=== PATIENT | male | born 1955 | race Caucasian/White ===

== ENCOUNTER 2024-12-09 13:50 | Outpatient (REF) | payer MEDICARE, MEDICAID, SELFPAY ==
--- OUTSIDE RECORDS SUMMARY | 2024-12-09 14:06 | XMS_ITS | Encounter Summary ---
Author Organization [employer] Address [address] [place] [address] Care Team Providers Care Airline Pilot Flight Instructor Name Role Phone Jacquelyn Kothari MD Primary Care Provider [phone] Encounter Details Date Type Department Care Team ([facility] st Contact Info) Description 08/08/2022 Orders Only [facility] [address] [place], [place] [phone] Alexia Carroll LPN Social History Tobacco Use Types Packs/Day Years Used Date Smoking Tobacco: Never Assessed Sex and Gender Information Value Date Recorded Sex Assigned at Male 05/13/2022 10:30 AM EDT Legal Sex Male 10:30 AM EDT Gender Identity Male 05/13/2022 10:30 AM EDT Sexual Orientation Straight 05/13/2022 10 :30 AM EDT documented as of this encounter Plan of Treatment Not on file documented as of this encounter Visit Diagnoses Not on filedocumented in this encounter Care Teams Airline Pilot Flight Instructor Relationship Specialty Start Date End Date Jacquelyn Kothari MD [address] [place] [address] PCP - General Family Medicine 05/18/20 documented as of this encounter
[2024-12-09 17:36] LABS: MANUAL DIFF FLAG NO
[2024-12-09 17:44] LABS: Basophils Absolute Auto 0.1 X10*3/uL (0.0-0.2); Basophils Percent Auto 0.9 % (0-2); Eosinophils Absolute Auto 0.3 X10*3/uL (0.0-0.4); Eosinophils Percent Auto 5.1 % (0-4); Hematocrit 43.4 % (42.0-52.0); Hemoglobin 14.7 g/dl (14.0-18.0); Imm Gran Abs Auto 0.01 X10*3/uL (0.00-0.03); Imm Gran Pct Auto 0.2 % (0.0-0.4); Lymphocytes Percent Auto 17.3 % (20-40); Mean Corpuscular HGB Conc 33.9 g/dl (31.0-36.0); Mean Corpuscular Hemoglobin 29.6 pg (27.0-33.0); Mean Corpuscular Volume 87.3 fL (80.0-98.0); Mean Platelet Volume 9.1 fL (9.4-12.4); Monocytes Absolute Auto 0.7 X10*3/uL (0.1-1.2); Monocytes Percent Auto 11.4 % (2-11); Neutrophils Absolute Auto 3.8 x10*3/uL (2.0-8.3); Neutrophils Percent Auto 65.1 % (45-73); Platelet Count 227 X10*3/uL (160-400); Red Blood Count 4.97 X10*6/uL (4.60-5.80); Red Cell Distribution Width 12.3 % (11.0-16.0); White Blood Count 5.9 X10*3/uL (4.8-10.8)
[2024-12-09 18:01] LABS: Alanine Aminotransferase 34 U/L (0-40); Albumin Level 4.4 g/dL (3.5-5.0); Alkaline Phosphatase 86 U/L (39-117); Anion Gap 11 (12-20); Aspartate Amino Transferase 37 U/L (5-37); Bilirubin Direct 0.2 mg/dL (0.0-0.5); Bilirubin Total 0.7 mg/dL (0.0-1.0); Blood Urea Nitrogen 12 mg/dL (9-16); Calcium 9.4 mg/dL (8.4-10.2); Carbon Dioxide 27 mmol/L (22-29); Chloride 103 mmol/L (96-108); Cholesterol 130 mg/dL (<200); Estimated Glomerular Filt Rate > 60; Glucose Fasting 97 mg/dL (60-99); HDL Cholesterol 33 mg/dL (>40); LDL Cholesterol Calculated 79 mg/dL (<100); Potassium 4.1 mmol/L (3.3-5.1); Sodium 137 mmol/L (135-145); Total Protein 7.3 g/dL (6.5-8.0); Triglycerides 92 mg/dL (<150)
[2024-12-09 18:03] LABS: Creatinine Urine 139.36 mg/dL; Microalbum/Creatinine Ratio Ur 4.3 ug/mg cr (<30)
[2024-12-09 18:20] LABS: TSH reflex Free T4 1.48 uIU/mL (0.32-4.0)
[2024-12-09 18:25] LABS: Folate 8.1 ng/mL (> or = 4.0); Prostate Specific Antigen Scr 0.87 ng/mL (<0.05-4.0); Vitamin B12 312 pg/mL (200-900)
== END 2024-12-09 13:51 | disposition home or self-care (01) ==
LOC: HO.CHCLDS 13:50
PROVIDERS: Visit Provider Pediatrics
DX: Z00.00 Encounter for general adult medical examination without abnormal findings (principal); E78.00 Pure hypercholesterolemia, unspecified; Z12.11 Encounter for screening for malignant neoplasm of colon; Z12.5 Encounter for screening for malignant neoplasm of prostate
CPT/HCPCS: 36415; 80048; 80061; 80076; 82043; 82570; 82607; 82746; 84153; 84443; 85025

== ENCOUNTER 2025-04-05 13:05 | Outpatient (AMB) | payer MEDICARE, MEDICAID, SELFPAY ==
--- NOTE | 2025-04-05 13:09 | MHC.OFFVIS ---
Vital Signs 04/05/25 13:10 Height 5 ft 10 in Weight 198 lb 6.656 oz BMI 28.5 BP 130/70 Blood Pressure Location Lt brachial Position Sitting Pulse 57 Pulse Source Monitor Intake Visit Reasons: CERTIFIED FIRST ASSISTANT/Dr. Kothari/Hypercholesterolemia, CAD, HTN Senior Qa Analyst Required: No Accompanied by: Self / Same As Patient Allergies Penicillins Allergy (Verified 04/05/25 13:13) Anaphylaxis Medication List - Last Reconciled 04/05/25 by Yovani Gusman MD aspirin (Adult Low Dose Aspirin) 81 mg PO DAILY atorvastatin 80 mg PO DAILY lisinopril 5 mg PO QAM metoprolol tartrate 25 mg PO BID sertraline 150 mg PO DAILY HPI Comments Details: The patient is a 69-year-old male presenting for cardiovascular evaluation and management of existing conditions. The patient has a history of coronary artery disease, having undergone an angiogram and stent placement in 2011. Since the procedure, he reports no significant cardiac symptoms and has not been under regular cardiology follow-up. He lives alone and is retired, maintaining contact with family and friends. He is on medication for hypertension and hyperlipidemia, indicating a history of these conditions. The patient also experiences anxiety, for which he is prescribed sertraline, and he reports that it manages his symptoms well. [facility] Medical History (Updated 04/05/25 @ 13:27 by Yovani Gusman MD) Atherosclerotic cardiovascular disease Surgical History (Updated 04/05/25 @ 13:15 by Ines Vidal CMA) Hx of cardiac cath Family History (Updated 04/05/25 @ 13:16 by Ines Vidal CMA) Mother S/P triple vessel bypass Social History (Updated 04/05/25 @ 13:17 by Ines Vidal CMA) Alcohol intake: current Alcohol intake frequency: holidays/special occasions only Patient Tobacco Use Status: Never used Tobacco e-Cigarette/Vaping Use: Former Use Review of Systems Const Denies chills, Denies fatigue, Denies fever(s), Denies frequent falls, Denies weakness, Denies weight gain and Denies weight loss ENT Denies dizziness Card Denies chest pain, Denies leg edema, Denies lightheadedness, Denies palpitations, Denies dyspnea, Denies dyspnea on exertion and Denies orthopnea Resp Denies cough, Denies dyspnea and Denies dyspnea on exertion GI Denies bloating and Denies change in bowel habits Musc Denies muscle weakness, Denies numbness and Denies tingling Neuro Denies dizziness, Denies frequent falls, Denies numbness, Denies tingling and Denies weakness Endo Denies fatigue and Denies palpitations Physical Exam Vital Signs: Last Vital Signs Pulse 57 04/05/25 13:10 BP 130/70 04/05/25 13:10 BMI result Body Mass Index 28.5 Const General: comfortable and no acute distress Orientation/consciousness: patient oriented x3 HEENT Other: Unremarkable Head: Yes normal to inspection Neck Neck: Yes normal visual inspection Chest Chest palpation & inspection: normal inspection of the chest Resp Auscultation: clear to auscultation bilaterally Cardio Palpation: normal PMI Heart sounds: S1 normal heart sound present, S2 normal heart sound present, no gallops, no murmurs and no rubs GI Palpation (GI): Soft to palpation Back/Spine/Pelvis Other: unremarkable Skin General skin exam: no rashes or lesions noted Neuro General: patient oriented x3 Extrem General: Yes normal to inspection Psych Mental Status: mental status grossly normal Office Procedures EKG Details: EKG with underlying sinus bradycardia at 57/Min; no ischemic changes; [place] [address]-[id number], Complete Assessment & Plan Assessment & Plan (1) Atherosclerotic cardiovascular disease: Code(s): I25.10 - Atherosclerotic heart disease of ely shoshone coronary artery without angina pectoris Category: Medical Plan Per cardiac catheterization report in 2012, performed for inferior STEMI. Underwent emergent primary PCI to distal RCA. Catheterization report otherwise describes two-vessel coronary disease with chronic total occlusion of circumflex/obtuse marginal. LVEF was normal with mild inferior apical hypokinesis. Clinically, he has got no overt angina. As it has been so many years without any cardiac workup, we will do a comprehensive evaluation with an echocardiogram and stress perfusion imaging study. We discussed about these today and he is willing to do. Otherwise, he can stay on the current regimen for now. Discussion Notes I discussed with the patient the importance of monitoring his cardiac health, given his history of coronary artery disease. We agreed on scheduling a heart ultrasound and a stress test to evaluate his current cardiac status. The patient was informed about the procedures and their purpose in assessing his heart function and potential risks. Patient was informed and verbally consented to the use of an ambient scribe for clinic note documentation during this visit. Orders: Orders CA stress test Today I25.10 - Atherosclerotic heart disease of ely shoshone coronary artery without angina pectoris NM cardiolite stress test Today I25.10 - Atherosclerotic heart disease of ely shoshone coronary artery without angina pectoris, R07.2 - Precordial pain CA echo transthoracic complete Today I25.10 - Atherosclerotic heart disease of ely shoshone coronary artery without angina pectoris Patient Instructions: - Continue taking prescribed medications for blood pressure, cholesterol. - Attend scheduled heart ultrasound and stress test appointments. Coding Level of Care Code New Pt Level 4 (74517) Complex EM visit Add On G2211 Diagnoses Atherosclerotic cardiovascular disease I25.10 CPT Codes EKG - CPT: 19590-[id number], Complete ([id number])
[2025-04-05 13:10] VITALS: BP 130/70; PULSE 57; BMI 28.5
--- OUTSIDE RECORDS SUMMARY | 2025-04-05 16:02 | XMS_ITS | Encounter Summary ---
Author Organization [employer] Address [address] [place] [address] Care Team Providers Care Judicial Registrar Name Role Phone Jacquelyn Kothari MD Primary Care Provider Reason for Visit * Reason Comments Med Refill Encounter Details Date Type Department Care Team ([facility] Contact Info) Description 11/03/2022 Refill [facility] MED & PEDS [address] [place] [address] Jacquelyn Kothari MD [address] [place] [address] Anxiety Social History Tobacco Use Types Packs/Day Years [...] documented as of this encounter Visit Diagnoses Diagnosis Anxiety Anxiety state, unspecified documented in this encounter Care Teams Judicial Registrar Relationship Specialty Start Date End Date Jacquelyn Kothari MD [address] [place] [address] PCP - General Family Medicine 05/18/20 documented as of this encounter
--- OUTSIDE RECORDS SUMMARY | 2025-04-05 16:02 | XMS_ITS | Encounter Summary ---
Author Organization [employer] Address [address] [facility] [address] [place] [address] Care Team Providers Care Paper Twister Name Role Phone Jacquelyn Kothari MD Primary Care Provider [phone] Reason for Visit * Reason Comments Med Refill Encounter Details Date Type Department Care Team ([facility] Contact Info) Description 09/26/2024 Refill [facility] CHC MED & PEDS [address] [place], [place] [phone] Jacquelyn Kothari MD [address] [place], [place] [phone] Dyslipidemia Social History Tobacco Use Types Packs/Day Years Used Date Smoking Tobacco: Never Passive Smoke Exposure: Never Smokeless Tobacco: Never Alcohol Answer Date Recorded How often do you have a drink containing alcohol ? 4 11/12/2022 How many drinks containing a lcohol do you have on a typical day when you are drinking? 0 11/12/2022 How often do you have six or more drinks on one occasion? 0 11/12/2022 Depression Answer Date Recorded Patient Health Questionnaire-9 Score 1 11/12/2022 Housing Stability Answer Date Recorded What is your housing situation today? I have artemio lo 05/10/[address] you li ve. Do you have problems with any of the following? None of the above 05/10/2023 Food Insecurity Answer Date Recorded Within the past 12 months, y ou worried that your food would run out before you got money to buy more: Never True 05/10/2023 Within the past 12 months,th e food you bought just didn't last and you didn't have enough money to get more: Never True Transportation Answer Date Recorded In the past 12 months, has l ack of transportation kept you from medical appts, meetings, work or from getting things needed for daily living? No 05/10/2023 Utilities Answer Date Recorded In the past 12 months, has t he electric, gas, oil or water company threatened to shut off services in your home? No 05/10/2023 Depression Answer Date Recorded Patient Health Questionnaire-2 Score 0 11/12/2022 Sex and Gender Information Value Date Recorded Sex Assigned at Male 05/13/2022 10:30 AM EDT Legal Sex Male 10:30 AM EDT Gender Identity Male 05/13/2022 10:30 AM EDT Sexual Orientation Straight 05/13/2022 10 :30 AM EDT documented as of this encounter Plan of Treatment Not on file documented as of this encounter Visit Diagnoses Diagnosis Dyslipidemia Other and unspecified hyperlipidemia documented in this encounter Additional Health Concerns Assessment Noted Time PHQ-9 Depression Total Score: 1 11/13/19 23 11:04 AM EDT documented as of this encounter Care Teams Paper Twister Relationship Specialty Start Date End Date Jacquelyn Kothari MD [address] [place] [address] PCP - General Family Medicine 05/18/20 documented as of this encounter
--- OUTSIDE RECORDS SUMMARY | 2025-04-05 16:02 | XMS_ITS | Encounter Summary ---
Author Organization [employer] Address [address] [place] [address] Care Team Providers Care Station Installer Name Role Phone Jacquelyn Kothari MD Primary Care Provider [phone] Encounter Details Date Type Department Care Team ([facility] st Contact Info) Description 08/08/2022 Orders Only [facility] [address] [place], [place] [phone] Alexia Carroll LPN Social History Tobacco Use [...] on filedocumented in this encounter Care Teams Station Installer Relationship Specialty Start Date End Date Jacquelyn Kothari MD [address] [place] [address] PCP - General Family Medicine 05/18/20 documented as of this encounter
--- OUTSIDE RECORDS SUMMARY | 2025-04-05 16:02 | XMS_ITS | Clinical Summary ---
Author Organization [employer] Address [address] [facility] [address] [place] [address] Care Team Providers Care Sas Developer Analyst Name Role Phone Jacquelyn Kothari MD Primary Care Provider [phone] Allergies Active Allergy Reactions Criticality Noted Date Comments Penicillins 07/18/2016 Medications aspirin (Iva Aspirin) 325 MG tablet Take 1 Tablet by Oral route once 0 Active sertraline (Zoloft) 100 MG tabletIndications :Anxiety Take 1.5 tablets (150 mg) by mouth in the morning. 45 tablet 1 3 Active albuterol 108 (90 Base) MCG/ACT inhalerIndication s:Acute cough Inhale 2 puffs every 4 (four) hours if needed for wheezing. 18 g 3 Active atorvastatin (Lipitor) 80 MG tabletIndications :Dyslipidemia Take 1 tablet (80 mg) by mouth Once per day. 90 tablet 2 5 07/09/20 25 Active lisinopril 5 MG tabletIndications :Anxiety Take 1 tablet (5 mg) by mouth in the morning. 90 tablet 1 5 Active sertraline (Zoloft) 100 MG tablet TAKE 1 + 1/2 TABLETS BY MOUTH EVERY DAY 135 tablet 1 5 Active metoprolol tartrate (Lopressor) 25 MG tabletIndications :Primary hypertension Take 1 tablet (25 mg) by mouth 2 times daily. 180 tablet 1 5 Active Active Problems Problem Noted Date Diagnosed Date Coronary arteriosclerosis 04/23/2016 Hypercholesterolemia 04/23/2016 Hypertensive disorder 04/23/2016 Impaired fasting glucose 04/23/2016 Immunizations Immunization Administration Dates Next Due Influenza High-dose Quadrivalent Preservative Fr ee 05/30/2020 Influenza Injectable Quadriv alant Preservative Free IIV4 MDCK 05/28/2018,06/13/2017 Influenza Quadrivalent Adjuvanted 06/15/2021 Influenza injectable quadriv alent IIV4 with preservative 04/23/2016 Influenza, High Dose Seasonal, Preservative Free 12/02/2024 Pfizer Covid-19 Vaccine 6M-4Y 12/02/2024 Pneumococcal Conjugate PCV 20 01/21/2023 Tdap 01/21/2023 Zoster, Recombinant 01/21/2023,11/12/2022 Social History Tobacco Use Types Packs/Day Years Used Date Smoking Tobacco: Never Passive Smoke Exposure: Never Smokeless Tobacco: Never Tobacco Cessation:Counseling Given: Not Answered Alcohol Answer Date Recorded How often do you have a drink containing alcohol ? 3 12/02/2024 How many drinks containing a lcohol do you have on a typical day when you are drinking? 2 12/02/2024 How often do you have six or more drinks on one occasion? 2 12/02/2024 Depression Answer Date Recorded Patient Health Questionnaire-9 Score 1 12/02/2024 Patient Health Questionnaire-9 Score 1 12/02/2024 Last PHQ-9: Questionnaire Data Not on file 0 12/02/2024 Housing Stability Answer Date Recorded What is your housing situation today? I have artemiomanan lo 12/02/[address] you li ve. Do you have problems with any of the following? None of the above 12/02/2024 Food Insecurity Answer Date Recorded Within the past 12 months, y ou worried that your food would run out before you got money to buy more: Never True 12/02/2024 Within the past 12 months,th e food you bought just didn't last and you didn't have enough money to get more: Never True Transportation Answer Date Recorded In the past 12 months, has l ack of transportation kept you from medical appts, meetings, work or from getting things needed for daily living? No 12/02/2024 Utilities Answer Date Recorded In the past 12 months, has t he electric, gas, oil or water company threatened to shut off services in your home? No 12/02/2024 Depression Answer Date Recorded Patient Health Questionnaire-2 Score 0 12/02/2024 Internet Access Answer Date Recorded Internet Access Q1 Yes 12/02/2024 Internet Access Q2 Not on file 12/02/2024 Sex and Gender Information Value Date Recorded Sex Assigned at Male 05/13/2022 10:30 AM EDT Legal Sex Male 10:30 AM EDT Gender Identity Male 05/13/2022 10:30 AM EDT Sexual Orientation Straight 05/13/2022 10 :30 AM EDT Last Filed Vital Signs Vital Sign Reading Time Taken Comments Blood Pressure 130/70 12/02/2024 1:43 PM EDT Pulse 76 12/02/2024 1:43 PM EDT Temperature 36.2 C (97.1 F) 12/02/2024 1:43 PM EDT Respiratory Rate 20 12/02/2024 1:43 PM EDT Oxygen Saturation 97% 05/27/2023 4:07 PM EST Inhaled Oxygen Concentration - - Weight 89.8 kg (198 lb) 12/02/2024 1:43 PM EDT Height 175.7 cm (5' 9.18 ) 12/02/2024 1:43 PM ED T Body Mass Index 29.09 12/02/2024 1:43 PM EDT Plan of Treatment Health Maintenance Due Date Last Done Comments CT Colonography 1955 Colonoscopy 1955 FIT 1955 Sigmoidoscopy 1955 Hepatitis C Screening 1973 RSV Patients and Patients Aged 60 years or older (1 - Risk 60-74 years 1-dose series) 2015 COVID-19 Vaccine ( season) 2025 12/02/2024, 06/20/2022, 06/15/2021, Additional history exists Influenza Vaccine (#1) 2025 , 06/15/2021, 05/30/2020, Additional history exists Alcohol/Substance Use Screening 12/02/2025 12/02/2024 Depression Screening 12/02/2025 12/02/2024, 12/03/19 25 SDOH Screening 12/02/2025 12/02/2024 Tobacco Screening 12/02/2025 12/02/2024 FOBT 12/15/2025 12/15/2024 Colorectal Cancer Screening 12/16/2027 FIT DNA/Cologuard 12/16/2027 12/15/2024 Lipid Panel 12/09/2029 12/09/2024 DTaP/Tdap/Td Vaccines (2 - Td or Tdap) 01/21/2033 01/21/2023 Pneumococcal Vaccine: 50+ Years Completed 01/21/2023 Zoster Vaccines Completed 01/21/2023, 11/12/2022 HIB Vaccines Aged Out No longer eligi ble based on patient's age to complete this topic HPV Vaccines Aged Out No longer eligi ble based on patient's age to complete this topic Hepatitis A Vaccines Aged Out No long er eligible based on patient's age to complete this topic Hepatitis B Vaccines Aged Out No long er eligible based on patient's age to complete this topic IPV Vaccines Aged Out No longer eligi ble based on patient's age to complete this topic Meningococcal B Vaccine Aged Out No l onger eligible based on patient's age to complete this topic Meningococcal Vaccine Aged Out No juan manuel nathan eligible based on patient's age to complete this topic RSV under 20 months Aged Out No longe r eligible based on patient's age to complete this topic Rotavirus Vaccines Aged Out No longer eligible based on patient's age to complete this topic Procedures Procedure Name Priority Date/Time Associated Diagnosis Comments LAB COLOGUARD COLON CANCER SCREEN Routine 12/15/2024 12:05 AM EDT Screening for colon cancer Routine general medical examination at a health care facility Hypercholesterolemia LIPID PANEL, STANDARD Routine 12/09/2024 2:02 PM EDT Screening for colon cancer Routine general medical examination at a health care facility Hypercholesterolemia from Last 3 Months or Most Recently Relevant to Health Maintenance Results * (ABNORMAL) Cologuard?? colon cancer screening (12/15/2024 12:05 AM EDT) Cologuard Result Positive( A) Negative 12/22/2024 3:39 AM EDT Prior Knowledge (CLIA #:[id number]) Comment: The Cologuard Plus (TM) test was performed on this specimen. POSITIVE TEST RESULT. A positive (abnormal) Cologuard Plus result means the patient has a bdocsw-coyx-xostjlf chance of having colorectal cancer (CRC) or precancer (polyps or lesions that could become cancer). The normal value (reference range) for this assay is negative. A positive result should be followed by a colonoscopy to locate and confirm the presence of cancer or precancer. A positive Cologuard Plus result is not a cancer diagnosis. The federal government now considers the colonoscopy following a positive Cologuard Plus test result a covered preventive service. Call for more information. A clinical validation study measured the effectiveness of the Cologuard Plus test. Out of 100 patients testing positive: approximately 3 patients will have CRC; 34 patients will have advanced precancer; 33 will have a non-advanced precancer; and 30 will have no cancer or precancer. TEST DESCRIPTION: The Cologuard Plus test is a multi-target stool DNA (mt-sDNA) test that analyzes DNA and hemoglobin biomarkers in stool. It uses a proprietary algorithm to qualitatively detect CRC and advanced precancer. It is FDA-approved and indicated for use in adults 45 years or older at average risk for CRC. A positive (abnormal) result should be followed by a colonoscopy. Patients with a negative (normal) result should screen again in 3 years. False positive and false negative results may occur. The USPSTF recommends the Cologuard test as a CRC screening option. Their modeling estimates that screening with the test every 3 years from ages 45-85 could prevent up to 73% of CRC and avoid up to 85% of CRC deaths. A 18,911-patient clinical trial found the Cologuard Plus test effectively detects CRC and precancer. The study found the test was 95% sensitive for CRC, 43% sensitive for advanced precancer, and had a 91% specificity (Cologuard Plus Clinician Brochure. [employer], [place] Visit www.[employer].com/about/jyedqwca-jibzlvrsytd-ahjdhnwzsgh for more test information, references, warnings, and precautions. Stool specimen (specimen) 12/15/2024 12:05 AM EDT 12/17/2024 10:29 AM EDT us Jacquelyn Kothari MD LAB MOLECULAR DIAGNOSTICS ORD ERABLES Final Result Prior Knowledge (CLIA #:[id number]) [address] [place] [address], * (ABNORMAL) Lipid Panel, Standard (12/09/2024 2:02 PM EDT) Triglycerides 92 <150 mg/dL [facility] Comment:Desirable Triglyceri de: less than 150 mg/dLBorderline High Triglyceride 150-199 mg/dLHigh Triglyceride: 200-499 mg/dLVery High Triglyceride: greater than or equal to 5OO mg/dL Cholesterol 130 <200 mg/dL [facility] Comment:Desirable Cholestero l: less than 200 mg/dLBorderline High Cholesterol: 200-239 mg/dLHigh Cholesterol: greater than 239 mg/dL LDL Cholesterol Calculated 79 <100 mg/dL [facility] Comment:Desirable LDL: less than 100 mg/dLNear Optimal/Above Optimal LDL: 110- 129 mg/dLBorderline High LDL: 130-159 mg/dLHigh LDL: 160-189 mg/dLVery High LDL: greater than or equal to 190 mg/dL HDL Cholesterol 33(L) >40 mg/dL [facility] Comment:Desirable HDL: great er than 40 mg/dL Note: This HDL assay may give artificially low results in patients with liver disease. Blood Venous blood specimen / Unknown 12/09/2024 2:02 PM EDT 12/09/2024 5:33 PM EDT us Jacquelyn Kothari MD LAB BLOOD ORDERABLES Final Re sult [facility] [address] [place], [place] [id number] [phone] from Last 3 Months or Most Recently Relevant to Health Maintenance [place] [id number] [facility] Care Teams Sas Developer Analyst Relationship Specialty Start Date End Date Jacquelyn Kothari MD [address] [facility] [place] [address] PCP - General Family Medicine 05/18/20
--- OUTSIDE RECORDS SUMMARY | 2025-04-05 16:02 | XMS_ITS | Encounter Summary ---
Author Organization [employer] Address [address] [place] [address] [address] [place] [address] Care Team Providers Care Crane Chaser Name Role Phone Jacquelyn Kothari MD Primary Care Provider [phone] Reason for Visit * Reason Comments Med Refill Encounter Details Date Type Department Care Team ([facility] Contact Info) Description 10/11/2024 Refill [facility] CHC MED & PEDS [address] [place] [address] Patricia Walsh MD [address] [place] [address] Anxiety Social History Tobacco Use Types Packs/Day [...] Anxiety state, unspecified documented in this encounter Additional Health Concerns Assessment Noted Time PHQ-9 Depression Total Score: 1 11/13/19 23 11:04 AM EDT documented as of this encounter Care Teams Crane Chaser Relationship Specialty Start Date End Date Jacquelyn Kothari MD [address] [place] [address] PCP - General Family Medicine 05/18/20 documented as of this encounter
--- OUTSIDE RECORDS SUMMARY | 2025-04-05 16:02 | XMS_ITS | Encounter Summary ---
Author Organization [employer] Address [address] [place] [address] 7 [place] [address] Care Team Providers Care Manager Benefit Name Role Phone Jacquelyn Kothari MD Primary Care Provider [phone] Reason for Visit * Reason Comments Med Refill Encounter Details Date Type Department Care Team ([facility] Contact Info) Description 12/27/2022 Refill [facility] CHC MED & PEDS [address] [place] [address] Cristian Robert MD 505 [place] [address] Primary hypertension Social History Tobacco Use Types Packs/Day Years [...] Recorded Patient Health Questionnaire-9 Score 1 11/12/2022 Depression Answer Date Recorded Patient Health Questionnaire-2 [...] as of this encounter Visit Diagnoses Diagnosis Primary hypertension Unspecified essential hypertension documented in this encounter Additional Health Concerns Assessment Noted Time PHQ-9 Depression Total Score: 1 11/13/19 23 11:04 AM EDT documented as of this encounter Care Teams Manager Benefit Relationship Specialty Start Date End Date Jacquelyn Kothari MD [address] [place] [address] PCP - General Family Medicine 05/18/20 documented as of this encounter
--- OUTSIDE RECORDS SUMMARY | 2025-04-05 16:02 | XMS_ITS | Encounter Summary ---
Author Organization [employer] Address [address] [facility] 7 [place] [address] Care Team Providers Care Sr. Director Product Management Name Role Phone Jacquelyn Kothari MD Primary Care Provider [phone] Reason for Visit * Reason Comments Med Refill Encounter Details Date Type Department Care Team ([facility] Contact Info) Description 10/11/2024 Refill [facility] CHC MED & PEDS 505 [place], [place] [phone] Jacquelyn Kothari MD 505 [place], [place] [phone] Dyslipidemia Social History Tobacco Use Types Packs/Day [...] documented as of this encounter Care Teams Sr. Director Product Management Relationship Specialty Start Date End Date Jacquelyn Kothari MD 505 [place] [address] PCP - General Family Medicine 05/18/20 documented as of this encounter
--- OUTSIDE RECORDS SUMMARY | 2025-04-05 16:02 | XMS_ITS | Encounter Summary ---
Author Organization [employer] Address [address] [place] [address] [place] [address] Care Team Providers Care Manager Retail Name Role Phone Jacquelyn Kothari MD Primary Care Provider [phone] Reason for Visit * Reason Comments Med Refill Encounter Details Date Type Department Care Team ([facility] Contact Info) Description 10/27/2022 Refill [facility] CHC MED & PEDS 505 [place] [address] Jacquelyn Kothari MD 505 [place] [address] Dyslipidemia; Anxiety Social History Tobacco Use Types Packs/Day [...] Diagnoses Diagnosis Dyslipidemia Other and unspecified hyperlipidemia Anxiety Anxiety state, unspecified documented in this encounter Care Teams Manager Retail Relationship Specialty Start Date End Date Jacquelyn Kothari MD 505 [place] [address] PCP - General Family Medicine 05/18/20 documented as of this encounter
--- OUTSIDE RECORDS SUMMARY | 2025-04-05 16:02 | XMS_ITS | Encounter Summary ---
Author Organization [employer] Address [address] [place] [address] 7[address] [place] [address] Care Team Providers Care Baking Assistant Name Role Phone Jacquelyn Kothari MD Primary Care Provider [phone] Reason for Visit * Reason Comments Med Refill Encounter Details Date Type Department Care Team ([facility] Contact Info) Description 09/26/2024 Refill [facility] CHC MED & PEDS 505 [place] [address] Patricia Walsh MD 505 [place] [address] Anxiety Social History Tobacco Use Types Packs/Day [...] documented as of this encounter Care Teams Baking Assistant Relationship Specialty Start Date End Date Jacquelyn Kothari MD 505 [place] [address] PCP - General Family Medicine 05/18/20 documented as of this encounter
== END 2025-04-05 13:45 | disposition home or self-care (01) ==
LOC: HO.HCS 13:06
PROVIDERS: PCP Pediatrics; Visit Provider Internal Medicine
DX: I25.10 Atherosclerotic heart disease of native coronary artery without angina pectoris (principal)
CPT/HCPCS: 93010; 99204; G2211

== ENCOUNTER → 2025-04-05 13:05 | Outpatient (BNVA) | payer MEDICARE, MEDICAID, SELFPAY | PROVIDERS: PCP Pediatrics; Visit Provider Internal Medicine | DX: I25.10 Atherosclerotic heart disease of native coronary artery without angina pectoris (principal); R00.1 Bradycardia, unspecified | CPT/HCPCS: 93005; 99202 ==

== ENCOUNTER → 2025-05-25 14:55 | Outpatient (REF) | payer MEDICARE, MEDICAID, SELFPAY ==
--- NOTE | 2025-05-25 14:58 | CA_ITS ---
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 Study Quality: Adequate ECG Rhythm: Sinus Conclusions: - 1. Normal LV ejection fraction of 60 65% with mild LVH with impaired relaxation filling pattern - 2. Normal cardiac valvular Dopplers 3. Mildly dilated ascending aorta 3.7 cm 4. No gross pericardial effusion Findings Left Ventricle Normal left ventricular size and systolic function. There is mildly increased left ventricular wall thickness. The visually estimated ejection fraction is between 60-65%. Spectral Doppler is indicative of an impaired relaxation filling pattern. Peak GLS is -20.3%, within normal limits. Right Ventricle Normal right ventricular cavity size and systolic function. Atria The left atrium is likely dilated. There is lipomatous hypertrophy of the interatrial septum. There is no evidence of interatrial shunt. The right atrium is normal in size. Aortic Valve Normal aortic valve structure and function. There is no aortic valve stenosis. There is no aortic valve regurgitation. Mitral Valve Normal mitral valve structure and function. There is trace mitral valve regurgitation. There is no mitral valve stenosis. Pulmonic Valve The pulmonic valve was not well visualized. Great Vessels The pulmonary artery was not well visualized. There is mild dilatation of the ascending aorta measuring 3.70 cm. Small plaque is seen in the sino tubular ridge. Venous The inferior vena cava is normal in size and collapses greater than 50% with inspiration. Pericardium/Pleural There is no evidence of pericardial effusion. Prior Study Comparison No prior study available for comparison. Measurements 2D Linear Measurements IVSd: 1.20 0.6-0.9/0.6-1.0 cm LVIDd: 5.05 3.9-5.3/4.2-5.9 cm LVIDd Index: 2.43 2.4-3.2/2.2-3.1 cm/m2 LVIDs: 3.60 2.0-3.6 cm LVPWd: 1.08 0.7-1.1 cm LA Diam: 3.40 2.7-3.8/3.0-4.0 cm LAIDs Index: 1.63 1.5-2.3 cm/m2 LV Mass: 275.65 67-162/88-224 g LV Mass Index: 132.52 43-95/49-115 g/m2 LVOT Diam: 2.10 3.0+(-)1.3 cm 2D Systolic Function EF 4C: 62.80 >55% EF 2C: 65.50 >55% EF BiP: 63.40 >55% Mitral Valve MV Pk E: 0.76 MV PK A: 0.58 MV Decel Time: 202.00 E/A: 1.30 E'Lateral: 8.38 E'Medial: 5.87 E/E' Med: 13.00 E/E' Lat: 9.10 PHT: 59.00 MVA PHT: 3.73 Decel [place]: 3.78 Aortic Valve AoV Pk Abhilash: 1.53 AoV Mn Abhilash: 1.03 AoV VTI: 0.33 AoV Pk Grad: 9.00 Aov Mn Grad: 5.00 BOBBY Cont.VTI: 3.23 LVOT LVOT Pk Abhilash: 1.48 LVOT Mn Abhilash: 0.99 LVOT VTI: 0.31 LVOT Pk Grad: 9.00 LVOT Mn Grad: 4.00 LVOT Diam: 2.10 LVOT Area: 3.46 Diastolic Function MV Pk E: 0.76 MV Pk A: 0.58 E/A: 1.30 E'Medial: 5.87 E/E' Med: 13.00 E' Laterial: 8.38 E/E' Lat: 9.10 Right Ventricle TAPSE (mm): 22.30 TVS' Abhilash: 12.50 Tricuspid Valve RA Press: 3.00 Great Vessels Aorta Sinus of Valsalva: 3.87 2.0-3.5 cm Ao Asc: 3.70 2.1-3.4 cm Ao Arch: 3.30 Updated in Other Vendor System with Status of Final Steven Kauffman MD electronically signed on 05/25/2025 6:59:54 PM with status of Final
--- OUTSIDE RECORDS SUMMARY | 2025-05-25 18:16 | XMS_ITS | Encounter Summary ---
Author Organization [employer] Address [address] [place] [address] Care Team Providers Care Record Filing Clerk Name Role Phone Jacquelyn Kothari MD Primary Care Provider [phone] Encounter Details Date Type Department Care Team ([facility] st Contact Info) Description 08/08/2022 [facility] CHC MED & PEDS [address] [place], [place] [phone] Alexia Carroll LPN Social History Tobacco Use [...] on filedocumented in this encounter Care Teams Record Filing Clerk Relationship Specialty Start Date End Date Jacquelyn Kothari MD 505 [place] [address] PCP - General Family Medicine 05/18/20 documented as of this encounter
--- OUTSIDE RECORDS SUMMARY | 2025-05-25 18:17 | XMS_ITS | Encounter Summary ---
Author Organization [employer] Address [address] [place] [address] 7 [place] [address] Care Team Providers Care Cooler Supervisor Name Role Phone Jacquelyn Kothari MD Primary Care Provider [phone] Reason for Visit * Reason Comments Med Refill Encounter Details Date Type Department Care Team ([facility] Contact Info) Description 10/11/2024 Refill [facility] CHC MED & PEDS 505 [place], [place] [phone] Jacquelyn Kothari MD 505 [place], [place] [phone] Dyslipidemia Social History Tobacco Use Types Packs/Day [...] documented as of this encounter Care Teams Cooler Supervisor Relationship Specialty Start Date End Date Jacquelyn Kothari MD 505 [place] [address] PCP - General Family Medicine 05/18/20 documented as of this encounter
--- OUTSIDE RECORDS SUMMARY | 2025-05-25 18:17 | XMS_ITS | Encounter Summary ---
Author Organization [employer] Address [address] [place] [address] 7 [place] [address] Care Team Providers Care Summer Camp Counselor Name Role Phone Jacquelyn Kothari MD Primary Care Provider [phone] Reason for Visit * Reason Comments Med Refill Encounter Details Date Type Department Care Team ([facility] Contact Info) Description 12/27/2022 Refill [facility] CHC MED & PEDS [address] [place] [address] Cristian Robert MD 505 [place] [address] Primary hypertension Social History Tobacco Use Types [...] documented as of this encounter Care Teams Summer Camp Counselor Relationship Specialty Start Date End Date Jacquelyn Kothari MD [address] [place] [address] PCP - General Family Medicine 05/18/20 documented as of this encounter
--- OUTSIDE RECORDS SUMMARY | 2025-05-25 18:17 | XMS_ITS | Encounter Summary ---
Author Organization [employer] Address [address] [place] [address] Care Team Providers Care Foreign Banknote Teller Trader Name Role Phone Jacquelyn Kothari MD Primary Care Provider [phone] Reason for Visit * Reason Comments Med Refill Encounter Details Date Type Department Care Team ([facility] Contact Info) Description 11/03/2022 Refill [facility] CHC MED & PEDS 505 [place] [address] Jacquelyn Kothari MD 505 [place] [address] Anxiety Social History Tobacco Use Types Packs/Day [...] unspecified documented in this encounter Care Teams Foreign Banknote Teller Trader Relationship Specialty Start Date End Date Jacquelyn Kothari MD 505 [place] [address] PCP - General Family Medicine 05/18/20 documented as of this encounter
--- OUTSIDE RECORDS SUMMARY | 2025-05-25 18:17 | XMS_ITS | Encounter Summary ---
Author Organization [employer] Address [address] [place] [address] 7 [place] [address] Care Team Providers Care Corporate Security Manager Name Role Phone Jacquelyn Kothari MD Primary Care Provider [phone] Reason for Visit * Reason Comments Med Refill Encounter Details Date Type Department Care Team ([facility] Contact Info) Description 09/26/2024 Refill [facility] CHC MED & PEDS 505 [place], [place] [phone] Jacquelyn Kothari MD 505 [place], [place] [phone] Dyslipidemia Social History Tobacco Use Types Packs/Day [...] documented as of this encounter Care Teams Corporate Security Manager Relationship Specialty Start Date End Date Jacquelyn Kothari MD 505 [place] [address] PCP - General Family Medicine 05/18/20 documented as of this encounter
--- OUTSIDE RECORDS SUMMARY | 2025-05-25 18:17 | XMS_ITS | Encounter Summary ---
Author Organization [employer] Address [address] [place] [address] 7t [place] [address] Care Team Providers Care Bevel Gear Generator Operator Name Role Phone Jacquelyn Kothari MD Primary Care Provider [phone] Reason for Visit * Reason Comments Med Refill Encounter Details Date Type Department Care Team ([facility] Contact Info) Description 10/11/2024 Refill [facility] CHC MED & PEDS 505 [place] [address] Patricia Walsh MD 505 [place] [address] Anxiety Social History Tobacco Use Types Packs/Day [...] documented as of this encounter Care Teams Bevel Gear Generator Operator Relationship Specialty Start Date End Date Jacquelyn Kothari MD 505 [place] [address] PCP - General Family Medicine 05/18/20 documented as of this encounter
--- OUTSIDE RECORDS SUMMARY | 2025-05-25 18:17 | XMS_ITS | Clinical Summary ---
Author Organization [employer] Address [address] [place] [address] 7t [place] [address] Care Team Providers Care Photographs Curator Name Role Phone Jacquelyn Kothari MD Primary Care Provider Allergies Active Allergy Reactions Criticality Noted Date [...] 90 tablet 2 5 07/09/20 25 Active metoprolol tartrate (Lopressor) 25 MG tabletIndications :Primary hypertension Take 1 tablet (25 mg) by mouth 2 times daily. 180 tablet 1 5 Active sertraline (Zoloft) 100 MG tablet TAKE 1 AND A HALF TABLETS BY MOUTH EVERY DAY 135 tablet 1 5 Active lisinopril 5 MG tabletIndications :Anxiety TAKE 1 TABLET BY MOUTH EVERY DAY IN THE MORNING 90 tablet 1 5 Active Active Problems Problem Noted Date Diagnosed Date Coronary arteriosclerosis 04/23/2016 Hypercholesterolemia 04/23/2016 Hypertensive disorder 04/23/2016 Impaired fasting glucose 04/23/2016 Encounters Date Type Department Care Team Description 04/14/2025 Refill [facility] CHC MED & PEDS [address] [place] [address] Jacquelyn Kothari MD Anxiety from Last 3 Months Immunizations Immunization Administration Dates Next Due Influenza [...] housing situation today? I have artemio lo 12/02/[address] you [...] cm (5' 9.18 ) 12/02/2024 1:43 PM E DT Body Mass Index 29.09 12/02/2024 1:43 PM EDT Plan of Treatment Health Maintenance Due Date Last Done Comments CT Colonography 1955 Colonoscopy 1955 FIT 1955 Sigmoidoscopy 1955 Hepatitis C Screening 1973 RSV Patients and Patients Aged 60 years or older (1 - Risk 50-74 years 1-dose series) 2005 COVID-19 Vaccine ( season) 2025 12/02/2024, 06/20/2022, [...] Positive( A) Negative 12/22/2024 3:39 AM EDT [employer] (CLIA #:[id number]) Comment: The Cologuard Plus (TM) test was performed on this specimen. POSITIVE TEST RESULT. A positive (abnormal) Cologuard Plus result means the patient has a srwxsw-qjom-hmemddy chance of having colorectal cancer (CRC) or [...] a 91% specificity (Cologuard Plus Clinician Brochure. [employer]. [place], [place].). Visit www.[employer]/about/[email or web address]-[email or web address] for more test information, references, warnings, and precautions. Stool specimen (specimen) 12/15/2024 12:05 AM EDT 12/17/2024 10:29 AM EDT Jacquelyn Kothari MD LAB MOLECULAR DIAGNOSTICS ORD ERABLES Final Result [employer] (CLIA #:[id number]) [address] [place] [address], * (ABNORMAL) Lipid Panel, Standard (12/09/2024 2:02 PM EDT) Triglycerides 92 <150 mg/dL [facility] Comment:Desirable Triglyceri de: less than 150 mg/dLBorderline High Triglyceride 150-199 mg/dLHigh Triglyceride: 200-499 mg/dLVery High Triglyceride: greater than or equal to 5OO mg/dL Cholesterol 130 <200 mg/dL [facility] Comment:Desirable Cholestero l: less than 200 mg/dLBorderline High Cholesterol: 200-239 mg/dLHigh Cholesterol: greater than 239 mg/dL LDL Cholesterol Calculated 79 <100 mg/dL [facility] Comment:Desirable LDL: less than 100 mg/dLNear Optimal/Above Optimal LDL: 110- 129 mg/dLBorderline High LDL: 130-159 mg/dLHigh LDL: 160-189 mg/dLVery High LDL: greater than or equal to 190 mg/dL HDL Cholesterol 33(L) >40 mg/dL [facility] Comment:Desirable HDL: great er than 40 mg/dL Note: This HDL assay may give artificially low results in patients with liver disease. Blood Venous blood specimen / Unknown 12/09/2024 2:02 PM EDT 12/09/2024 5:33 PM EDT us Jacquelyn Kothari MD LAB BLOOD ORDERABLES Final Re sult [facility] [address] [place] [address] [phone] from Last 3 Months or Most Recently Relevant to Health [place] [id number] MEDICARE [facility] [place] [address] Care Teams Photographs Curator Relationship Specialty Start Date End Date Jacquelyn Kothari MD 505 [facility] [place] [address] PCP - General Family Medicine 05/18/20
--- OUTSIDE RECORDS SUMMARY | 2025-05-25 18:17 | XMS_ITS | Encounter Summary ---
Author Organization [employer] Address [address] [place] [address] [place] [address] Care Team Providers Care Nip Wrapper Name Role Phone Jacquelyn Kothari MD Primary Care Provider [phone] Reason for Visit * Reason Comments Med Refill Encounter Details Date Type Department Care Team ([facility] Contact Info) Description 10/27/2022 Refill [facility] CHC MED & PEDS [address] [place] [address] Jacquelyn Kothari MD [address] [place] [address] Dyslipidemia; Anxiety Social History Tobacco Use Types [...] unspecified documented in this encounter Care Teams Nip Wrapper Relationship Specialty Start Date End Date Jacquelyn Kothari MD [address] [place] [address] PCP - General Family Medicine 05/18/20 documented as of this encounter
--- OUTSIDE RECORDS SUMMARY | 2025-05-25 18:17 | XMS_ITS | Encounter Summary ---
Author Organization [employer] Address [address] [place] [address] 7t [place] [address] Care Team Providers Care Sawmilling Operator Name Role Phone Jacquelyn Kothari MD Primary Care Provider Reason for Visit * Reason Comments Med Refill Encounter Details Date Type Department Care Team ([facility] Contact Info) Description 09/26/2024 Refill [facility] CHC MED & PEDS [address] [place] [address] Patricia Walsh MD [address] [place] [address] Anxiety Social History Tobacco Use Types Packs/Day [...] documented as of this encounter Care Teams Sawmilling Operator Relationship Specialty Start Date End Date Jacquelyn Kothari MD [address] [place] [address] PCP - General Family Medicine 05/18/20 documented as of this encounter
== END ==
LOC: HO.CARD 14:55
PROVIDERS: PCP Pediatrics; Visit Provider Internal Medicine
DX: I25.10 Atherosclerotic heart disease of native coronary artery without angina pectoris (principal)
CPT/HCPCS: 93306

== ENCOUNTER → 2025-05-25 14:58 | Outpatient (BNV) | payer MEDICARE, MEDICAID, SELFPAY | PROVIDERS: PCP Pediatrics; Visit Provider Internal Medicine Cardiovascular Disease | DX: I51.7 Cardiomegaly (principal); I77.810 Thoracic aortic ectasia | CPT/HCPCS: 93306; 93356 ==

== ENCOUNTER → 2025-06-03 09:54 | Outpatient (REF) | payer MEDICARE, MEDICAID, SELFPAY ==
--- NOTE | ~2025-06-03 | NM_ITS ---
EXERCISE MYOCARDIAL PERFUSION STUDY INDICATION: Coronary artery disease TECHNIQUE: The patient was brought in for an exercise perfusion study on 06/03/2025. Patient performed exercise as per Buddy protocol and was injected 30 mCi of sestamibi once target heart rate was achieved. Images were obtained using the SPECT gamma camera interlaced with the gating device. Images were obtained in supine position. Resting perfusion study was performed on 06/06/2025. Patient was administered 30 mCi of sestamibi intravenously at rest. Images were then obtained in supine position. Total DLP 94 mGy-cm. Images were processed with the software and compared side to side in short axis, horizontal long axis and vertical long axis views. FINDINGS: Raw aquisition reviewed. The stress perfusion study showed decreased tracer uptake along the inferolateral wall from base to apex. No significant change with CT attenuation correction.. The gated study shows normal LV systolic function with calculated LVEF of 66%. LV cavity is normal in size. The gated study shows diminished wall thickening and contractility in the inferolateral wall. Resting study shows mildly decreased tracer uptake in the basal part of inferior wall. Gating at rest reveals basal inferior hypokinesis with ejection fraction at 60%. The findings are consistent with reversible inferolateral defect suggestive ischemia. In the basal part of inferior wall, defect appears fixed suggestive of infarct. AK/AK cardiolite stress test IMPRESSION: 1. Myocardial perfusion imaging study shows inferolateral ischemia. 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 2. Gated LVEF is 66% during stress and 60% during rest. 3. Transient ischemic dilatation not present. EKG component of the test reported separately. Electronically signed by: Yovani Gusman MD 06/07/2025 05:04 PM [facility]
--- NOTE | 2025-06-03 09:58 | CA_ITS ---
Acquisition Time: 2025-06-03 10:10:00 Total Exercise Time: 00:05:10 Test Indications: CAD Medications: Protocol: JUDI Max HR: 139 BPM 92% of Pred: 150 BPM Max BP: 190/70 mmHG Max Work Load: 7.0 METS Exercise stress test with exercise 5 mins 10 secs of Judi Protocol, achieving 89% MPHR, with reports of SOB, no chest pain, with isolated PACs and PVCs, one vent couplet, with normotensive response to exercise. With downsloping ST depression in the inferolateral leads and ST elavtion in aVR meeting criteria for ischemia. In recovery, breathing returned to baseline. ST segment improved. Nuclear images pending. Test reviewed with Dr. Gusman. Referred By: Yovani Gusman Electronically Signed By: Hi Tejeda
--- OUTSIDE RECORDS SUMMARY | 2025-06-03 10:34 | XMS_ITS | Clinical Summary ---
Author Organization [employer] Address [address] [place] [address] 7t [place] [address] Care Team Providers Care Play Writer Name Role Phone Jacquelyn Kothari MD Primary Care Provider [phone] Allergies Active Allergy Reactions Criticality Noted Date [...] Type Department Care Team Description 04/14/2025 Refill [facility] CHC MED & PEDS [address] [place] [address] Jacquelyn Kothari MD Anxiety from Last 3 [...] Positive( A) Negative 12/22/2024 3:39 AM EDT [employer] (CLIA #:[id number]) Comment: The Cologuard Plus (TM) test was performed on this specimen. POSITIVE TEST RESULT. A positive (abnormal) Cologuard Plus result means the patient has a vmdgwj-bgol-hmvttym chance of having colorectal cancer (CRC) or [...] a 91% specificity (Cologuard Plus Clinician Brochure. [employer]. [place], [place] Visit www.[employer]/about/vkvhsbwv-[email or web address] for more test information, references, warnings, and precautions. Stool specimen (specimen) 12/15/2024 12:05 AM EDT 12/17/2024 10:29 AM EDT Jacquelyn Kothari MD LAB MOLECULAR DIAGNOSTICS ORD ERABLES Final Result [employer] (CLIA #:[id number]) [address] [place] [address], * (ABNORMAL) Lipid Panel, Standard (12/09/2024 2:02 PM EDT) Triglycerides 92 <150 mg/dL [facility] Comment:Desirable Triglyceri de: less than 150 mg/dLBorderline High Triglyceride 150-199 mg/dLHigh Triglyceride: 200-499 mg/dLVery High Triglyceride: greater than or equal to 5OO mg/dL Cholesterol 130 <200 mg/dL [facility] Comment:Desirable Cholestero l: less than 200 mg/dLBorderline High Cholesterol: 200-239 mg/dLHigh Cholesterol: greater than 239 mg/dL LDL Cholesterol Calculated 79 <100 mg/dL [facility] Comment:Desirable LDL: less than 100 mg/dLNear Optimal/Above Optimal LDL: 110- 129 mg/dLBorderline High LDL: 130-159 mg/dLHigh LDL: 160-189 mg/dLVery High LDL: greater than or equal to 190 mg/dL HDL Cholesterol 33(L) >40 mg/dL [facility] Comment:Desirable HDL: great er than 40 mg/dL Note: This HDL assay may give artificially low results in patients with liver disease. Blood Venous blood specimen / Unknown 12/09/2024 2:02 PM EDT 12/09/2024 5:33 PM EDT us Jacquelyn Kothari MD LAB BLOOD ORDERABLES Final Re sult [facility] [address] [place] [address] [phone] from Last 3 Months or Most Recently Relevant to Health [place] [id number] MEDICARE [facility] [place] [address] Care Teams Play Writer Relationship Specialty Start Date End Date Jacquelyn Kothari MD 505 [facility] [place] [address] PCP - General Family Medicine 05/18/20
--- OUTSIDE RECORDS SUMMARY | 2025-06-03 10:34 | XMS_ITS | Encounter Summary ---
Author Organization [employer] Address [address] [place] [address] 7t [place] [address] Care Team Providers Care 2 Year Olds Preschool Teacher Name Role Phone Jacquelyn Kothari MD Primary Care Provider [phone] Reason for Visit * Reason Comments Med Refill Encounter Details Date Type Department Care Team ([facility] Contact Info) Description 09/26/2024 Refill [facility] CHC MED & PEDS [address] [place] [address] Patricia Walsh MD 505 [place] [address] Anxiety Social History Tobacco Use Types Packs/Day [...] documented as of this encounter Care Teams 2 Year Olds Preschool Teacher Relationship Specialty Start Date End Date Jacquelyn Kothari MD [address] [place] [address] PCP - General Family Medicine 05/18/20 documented as of this encounter
--- OUTSIDE RECORDS SUMMARY | 2025-06-03 10:34 | XMS_ITS | Encounter Summary ---
Author Organization [employer] Address [address] [place] [address] Care Team Providers Care Depalletizer Operator Name Role Phone Jacquelyn Kothari MD Primary Care Provider [phone] Reason for Visit * Reason Comments Med Refill Encounter Details Date Type Department Care Team ([facility] Contact Info) Description 11/03/2022 Refill [facility] CHC MED & PEDS [address] [place] [address] Jacquelyn Kothari MD 505 [place] [address] Anxiety Social History Tobacco Use Types Packs/Day [...] unspecified documented in this encounter Care Teams Depalletizer Operator Relationship Specialty Start Date End Date Jacquelyn Kothari MD [address] [place] [address] PCP - General Family Medicine 05/18/20 documented as of this encounter
--- OUTSIDE RECORDS SUMMARY | 2025-06-03 10:34 | XMS_ITS | Encounter Summary ---
Author Organization [employer] Address [address] [place] [address] Care Team Providers Care Room Designer Name Role Phone Jacquelyn Kothari MD Primary Care Provider [phone] Encounter Details Date Type Department Care Team ([facility] st Contact Info) Description 08/08/2022 Orders Only [facility] MED & PEDS [address] [place], [place] [phone] Alexia Carroll LPN Social History Tobacco Use [...] on filedocumented in this encounter Care Teams Room Designer Relationship Specialty Start Date End Date Jacquelyn Kothari MD [address] [place] [address] PCP - General Family Medicine 05/18/20 documented as of this encounter
--- OUTSIDE RECORDS SUMMARY | 2025-06-03 10:34 | XMS_ITS | Encounter Summary ---
Author Organization [employer] Address [address] [place] [address] 7 [place] [address] Care Team Providers Care Cruise Counselor Name Role Phone Jacquelyn Kothari MD Primary Care Provider [phone] Reason for Visit * Reason Comments Med Refill Encounter Details Date Type Department [facility] Description 09/26/2024 Refill [facility] CHC MED & PEDS [address] [place], [place] [phone] Jacquelyn Kothari MD 505 [place], [place] [phone] Dyslipidemia Social History Tobacco Use Types Packs/Day [...] documented as of this encounter Care Teams Cruise Counselor Relationship Specialty Start Date End Date Jacquelyn Kothari MD 505 [place] [address] PCP - General Family Medicine 05/18/20 documented as of this encounter
--- OUTSIDE RECORDS SUMMARY | 2025-06-03 10:34 | XMS_ITS | Encounter Summary ---
Author Organization [employer] Address [address] [place] [address] [place] [address] Care Team Providers Care Manager Lvn Name Role Phone Jacquelyn Kothari MD Primary Care Provider Reason for Visit * Reason Comments Med Refill Encounter Details Date Type Department Care Team ([facility] Contact Info) Description 10/27/2022 Refill [facility] CHC MED & PEDS [address] [place] [address] Jacquelyn Kothari MD [address] [place] [address] Dyslipidemia; Anxiety Social History Tobacco Use Types [...] documented in this encounter Care Teams Manager Lvn Relationship Specialty Start Date End Date Jacquelyn Kothari MD [address] [place] [address] PCP - General Family Medicine 05/18/20 documented as of this encounter
--- OUTSIDE RECORDS SUMMARY | 2025-06-03 10:34 | XMS_ITS | Encounter Summary ---
Author Organization [email or web address] Address [address] [place] [address] 7 [place] [address] Care Team Providers Care Custom Ski Maker Name Role Phone Jacquelyn Kothari MD Primary Care Provider [phone] Reason for Visit * Reason Comments Med Refill Encounter Details Date Type Department Care Team ([facility] Contact Info) Description 12/27/2022 Refill [facility] CHC MED & PEDS 505 [place] [address] Cristian Robert MD 505 [place] [address] Primary hypertension Social History Tobacco Use Types [...] documented as of this encounter Care Teams Custom Ski Maker Relationship Specialty Start Date End Date Jacquelyn Kothari MD [address] [place] [address] PCP - General Family Medicine 05/18/20 documented as of this encounter
--- OUTSIDE RECORDS SUMMARY | 2025-06-03 10:34 | XMS_ITS | Encounter Summary ---
Author Organization [employer] Address [address] [place] [address] 7[address] [place] [address] Care Team Providers Care Baggage Agent Supervisor Name Role Phone Jacquelyn Kothari MD Primary Care Provider [phone] Reason for Visit * Reason Comments Med Refill Encounter Details Date Type Department Care Team ([facility] Contact Info) Description 10/11/2024 Refill [facility] CHC MED & PEDS [address] [place] [address] Patricia Walsh MD [address] [place] [address] Anxiety Social History Tobacco Use Types Packs/Day [...] documented as of this encounter Care Teams Baggage Agent Supervisor Relationship Specialty Start Date End Date Jacquelyn Kothari MD 505 [place] [address] PCP - General Family Medicine 05/18/20 documented as of this encounter
--- OUTSIDE RECORDS SUMMARY | 2025-06-03 10:34 | XMS_ITS | Encounter Summary ---
Author Organization [employer] Address [address] [place] [address] 7 [place] [address] Care Team Providers Care Second Officer Name Role Phone Jacquelyn Kothari MD Primary Care Provider Reason for Visit * Reason Comments Med Refill Encounter Details Date Type Department Care Team ([facility] Contact Info) Description 10/11/2024 Refill [facility] CHC MED & PEDS 505 [place], [place] [phone] Jacquelyn Kothari MD [address] [place], [place] [phone] Dyslipidemia Social History Tobacco Use Types Packs/Day [...] documented as of this encounter Care Teams Second Officer Relationship Specialty Start Date End Date Jacquelyn Kothari MD [address] [place] [address] PCP - General Family Medicine 05/18/20 documented as of this encounter
== END ==
LOC: HO.CARD 09:54
PROVIDERS: PCP Pediatrics; Visit Provider Internal Medicine
DX: I25.10 Atherosclerotic heart disease of native coronary artery without angina pectoris (principal); R07.2 Precordial pain
CPT/HCPCS: 78452; 93017; A9500

== ENCOUNTER → 2025-06-03 09:58 | Outpatient (BNV) | payer MEDICARE, MEDICAID, SELFPAY | PROVIDERS: PCP Pediatrics | DX: I49.1 Atrial premature depolarization (principal); I49.3 Ventricular premature depolarization; R06.02 Shortness of breath | CPT/HCPCS: 78452; 93016; 93018 ==

== ENCOUNTER 2025-06-23 15:22 | Outpatient (AMB) | payer MEDICARE, MEDICAID, SELFPAY ==
--- NOTE | 2025-06-23 15:24 | A.OFFVIS_ITS ---
Vital Signs 06/23/25 15:25 Height 5 ft 10 in Weight 202 lb BMI 29.0 BP 133/62 Blood Pressure Location Lt brachial Position Sitting Pulse 58 Intake Visit Reasons: positive Cologuard Intake Note: Patient new consult for positive cologuard/pre Colonoscopy screening. Patient cc: soft stool, and acid reflux, denies any other GI issues. Director Of Planning Required: No Accompanied by: Self / Same As Patient Allergies pomegranate Allergy (Mild, Verified 06/23/25 15:46) Numbness Penicillins Allergy (Verified 06/23/25 15:24) Anaphylaxis Medication List - Last Reconciled 06/23/25 by Mariah Moya CNP aspirin (Adult Low Dose Aspirin) 81 mg PO DAILY atorvastatin 80 mg PO DAILY lisinopril 5 mg PO QAM metoprolol tartrate 25 mg PO BID sertraline 150 mg PO DAILY HPI HPI positive Cologuard: Details: Patient is a 70-year-old male with PMH of hyperlipidemia, hypertension. Referred by PCP for further evaluation of positive Cologuard. Positive Cologuard test collected on December 15, 2024. For approximately one year, the patient has experienced a change in bowel habits, characterized by looser stools, which he describes as type 4-5 on the Lewis Stool Chart, and a significant increase in gas. He reports that physical activity helps normalize his stools. He denies seeing any blood in his stool, abdominal pain, nausea, or vomiting, and his appetite remains good. His weight has been stable at around 200 pounds. The patient also reports infrequent, positional heartburn that occurs if he lies down within 2 to 2.5 hours after eating, which can be accompanied by regurgitation. He uses an [id number] antacid as needed, which he finds effective. He denies any trouble swallowing. Past medical history is significant for a myocardial infarction in September 2011, for which he follows with cardiology and recently completed cardiac testing including a stress test. He has a history of self-managed perianal hidradenitis suppurativa, for which he had two superficial surgeries in the past, and occasional hemorrhoids. Patient denies: fever/chills, n/v, appetite changes, dysphasia, unintentional wt loss, ab pain or melena/hematochezia. Social hx: -ETOH use, Drinks one beer several times a week at night. -vaping marijuana daily, denies other recreational drug use -non-smoker - family hx as below -denies personal hx of CA -tolerated anesthesia in the past without difficulty. [facility] Medical History (Updated 06/23/25 @ 16:08 by Mariah Moya CNP) Change in stool Acid reflux Positive colorectal cancer screening using Cologuard test Atherosclerotic cardiovascular disease Surgical History Hx of cardiac cath Family History Mother S/P triple vessel bypass Social History Alcohol intake: current Alcohol intake frequency: holidays/special occasions only Patient Tobacco Use Status: Never used Tobacco e-Cigarette/Vaping Use: Former Use Review of Systems Const Reports as per HPI ENT Reports as per HPI Card Reports as per HPI Resp Reports as per HPI GI Reports as per HPI Reports as per HPI Physical Exam Vital Signs: Last Vital Signs Pulse 58 06/23/25 15:25 BP 133/62 06/23/25 15:25 BMI result Body Mass Index 29.0 Const General: healthy appearing, no acute distress and well developed Nutritional Appearance: average body habitus Orientation/consciousness: patient oriented x3 HEENT Head: Yes normal to inspection, Yes normocephalic and Yes atraumatic Face and sinus: Yes normal facial exam Eyes General: appearance normal, both eyes and all related structures Neck Neck: Yes normal visual inspection Resp Effort & Inspection: normal respiratory effort, able to speak in complete sentences, no tracheal deviation and symmetric chest movement Cardio Jugular venous distension: no JVD GI Inspection: Yes normal to inspection, No distended and Yes obesity Palpation (GI): Soft to palpation, not firm, nontender and No hepatosplenomegaly present Auscultation: normal bowel sounds Neuro General: patient oriented x3 Gait exam (Neuro): Normal gait present Psych Appearance: grossly normal Mental Status: mental status grossly normal Speech and movement: Normal speech and movement present Affect: normal affect Attitude: cooperative Thought process: Normal thought process present Thought content: Normal thought content present Insight: Good insight present (Psych) Judgement: Good judgement present (Psych) Assessment & Plan Assessment & Plan (1) Positive colorectal cancer screening using Cologuard test: Code(s): R19.5 - Other fecal abnormalities Category: Medical Plan: The positive Cologuard test indicates bleeding from a gastrointestinal source, which requires further investigation to rule out polyps, colorectal cancer, or other causes. - Given the collection date, I emphasized the need to schedule this procedure urgently, by the end of next month. - The patient was instructed to hold his baby aspirin for seven days prior to the procedure to minimize bleeding risk. - A prescription for a Miralax split-dose preparation was sent to his pharmacy, and detailed prep instructions were provided. (2) Acid reflux: Code(s): K21.9 - Gastro-esophageal reflux disease without esophagitis Category: Medical Qualifiers: Esophagitis presence: esophagitis presence not specified Qualified Code(s): K21.9 - Gastro-esophageal reflux disease without esophagitis Plan: Given the patient's history of chronic, albeit infrequent, reflux symptoms, an upper endoscopy (EGD) is recommended to be performed at the same time as the colonoscopy. - This will allow for evaluation of the esophagus, stomach, and part of the small intestine. (3) Change in stool: Code(s): R19.5 - Other fecal abnormalities Category: Medical Plan: The patient's year-long history of loose stools and increased gas provides another indication for the colonoscopy. - To further evaluate these symptoms, additional testing will be ordered, inc luding stool studies to check for inflammation and infection; including H. pylori. - Blood tests will also be ordered to check for systemic inflammation. (4) Atherosclerotic cardiovascular disease: Code(s): I25.10 - Atherosclerotic heart disease of [place] coronary artery without angina pectoris Category: Medical Plan: While the patient has a history of a myocardial infarction, his recent cardiac workup was reassuring, and the planned procedures are considered low-risk. - No formal cardiology clearance is required before the procedure, though he was advised to inform his hazardous substances engineer about the upcoming endoscopy. - It is important that he stops taking his aspirin seven days prior as instructed. Plan Follow-up after endoscopy or sooner as needed Time: I spent a total of 36 minutes on the date of encounter which includes: Preparing to see the patient (reviewed previous documentation, test results and medical history) Performing a medically appropriate exam and/or evaluation Ordering medications, tests, and procedures Documenting clinical information in the health record Orders: Orders Calprotectin, Fecal Today R19.5 - Other fecal abnormalities GI Panel Today R19.5 - Other fecal abnormalities C Reactive Protein Today R19.5 - Other fecal abnormalities H pylori Ag Stool Today K21.9 - Gastro-esophageal reflux disease without esophagitis, R19.5 - Other fecal abnormalities Referrals GI Procedure Notification K21.9 - Gastro-esophageal reflux disease without esophagitis, R19.5 - Other fecal abnormalities Medications: New bisacodyl take four tablets once day of colonoscopy prep 20 mg (4 x 5 mg) PO ONCE 4 tabs 0RF polyethylene glycol 3350 (Miralax) per colonoscopy prep instructions 238 grams PO ONCE 238 grams 0RF Coding Level of Care Code New Pt New Pt Level 3 (17931) Patient Type New Diagnoses Positive colorectal cancer screening using Cologuard test R19.5 Gastroesophageal reflux disease, unspecified whether esophagitis present K21.9 Esophagitis presence: esophagitis presence not specified Change in stool R19.5 Atherosclerotic cardiovascular disease I25.10
[2025-06-23 15:25] VITALS: BP 133/62; PULSE 58; BMI 29.0
--- OUTSIDE RECORDS SUMMARY | 2025-06-23 22:57 | XMS_ITS | Encounter Summary ---
Author Organization [employer] Address [address] [place] [address] 7[address] [place] [address] Care Team Providers Care Meter/Relay Craftsman Name Role Phone Jacquelyn Kothari MD Primary Care Provider [phone] Reason for Visit * Reason Comments Med Refill Encounter Details Date Type Department Care Team ([facility] Contact Info) Description 09/26/2024 Refill [facility] CHC MED & PEDS [address] [place] [address] Patricia Walsh MD 505 [place] [address] Anxiety Social History Tobacco Use Types Packs/Day [...] documented as of this encounter Care Teams Meter/Relay Craftsman Relationship Specialty Start Date End Date Jacquelyn Kothari MD 505 [place] [address] PCP - General Family Medicine 05/18/20 documented as of this encounter
--- OUTSIDE RECORDS SUMMARY | 2025-06-23 22:57 | XMS_ITS | Encounter Summary ---
Author Organization [employer] Address [address] [place] [address] Care Team Providers Care Supervisor Cytogenetic Laboratory Name Role Phone Jacquelyn Kothari MD Primary Care Provider [phone] Reason for Visit * Reason Comments Med Refill Encounter Details Date Type Department Care Team ([facility] Contact Info) Description 11/03/[address] [facility] CHC MED & PEDS [address] [place] [address] Jacquelyn Kothari MD [address] [place] [address] Anxiety Social History Tobacco Use Types Packs/Day [...] unspecified documented in this encounter Care Teams Supervisor Cytogenetic Laboratory Relationship Specialty Start Date End Date Jacquelyn Kothari MD [address] [place] [address] PCP - General Family Medicine 05/18/20 documented as of this encounter
--- OUTSIDE RECORDS SUMMARY | 2025-06-23 22:57 | XMS_ITS | Encounter Summary ---
Author Organization [employer] Address [address] [place] [address] [place] [address] Care Team Providers Care Cannon Crewmember Name Role Phone Jacquelyn Kothari MD Primary Care Provider [phone] Reason for Visit * Reason Comments Med Refill Encounter Details Date Type Department Care Team ([facility] Contact Info) Description 10/27/2022 Refill [facility] CHC MED & PEDS 505 [place] [address] Jacquelyn Kothari MD [address] [place] [address] Dyslipidemia; Anxiety Social History Tobacco Use Types [...] unspecified documented in this encounter Care Teams Cannon Crewmember Relationship Specialty Start Date End Date Jacquelyn Kothari MD [address] [place] [address] PCP - General Family Medicine 05/18/20 documented as of this encounter
--- OUTSIDE RECORDS SUMMARY | 2025-06-23 22:57 | XMS_ITS | Encounter Summary ---
Author Organization [employer] Address [address] [place] [address] 7 [place] [address] Care Team Providers Care Continuous Improvement Analyst Name Role Phone Jacquelyn Kothari MD Primary Care Provider [phone] Reason for Visit * Reason Comments Med Refill Encounter Details Date Type Department Care Team ([facility] Contact Info) Description 09/26/2024 Refill [facility] CHC MED & PEDS 505 [place], [place] [phone] Jacquelyn Kothari MD 505 [place], [place] [phone] Dyslipidemia Social History Tobacco Use Types Packs/Day [...] documented as of this encounter Care Teams Continuous Improvement Analyst Relationship Specialty Start Date End Date Jacquelyn Kothari MD [address] [place] [address] PCP - General Family Medicine 05/18/20 documented as of this encounter
--- OUTSIDE RECORDS SUMMARY | 2025-06-23 22:57 | XMS_ITS | Encounter Summary ---
Author Organization [employer] Address [address] [place] [address] 7 [place] [address] Care Team Providers Care Timber Harvester Operator Name Role Phone Jacquelyn Kothari MD Primary Care Provider [phone] Reason for Visit * Reason Comments Med Refill Encounter Details Date Type Department Care Team ([facility] Contact Info) Description 10/11/2024 Refill [facility] CHC MED & PEDS [address] [place], [place] [phone] Jacquelyn Kothari MD 505 [place], [place] [phone] Dyslipidemia Social History Tobacco Use Types Packs/Day [...] documented as of this encounter Care Teams Timber Harvester Operator Relationship Specialty Start Date End Date Jacquelyn Kothari MD [address] [place] [address] PCP - General Family Medicine 05/18/20 documented as of this encounter
--- OUTSIDE RECORDS SUMMARY | 2025-06-23 22:57 | XMS_ITS | Encounter Summary ---
Author Organization [employer] Address [address] [place] [address] Care Team Providers Care Steam Shovelman Name Role Phone Jacquelyn Kothari MD Primary Care Provider [phone] Encounter Details Date Type Department Care Team ([facility] st Contact Info) Description 08/08/2022 Orders Only [facility] CHC MED & PEDS [address] [place], [place] [phone] Alexia Carroll LPN Social History Tobacco Use [...] on filedocumented in this encounter Care Teams Steam Shovelman Relationship Specialty Start Date End Date Jacquelyn Kothari MD [address] [place] [address] PCP - General Family Medicine 05/18/20 documented as of this encounter
--- OUTSIDE RECORDS SUMMARY | 2025-06-23 22:57 | XMS_ITS | Encounter Summary ---
Author Organization [employer] Address [address] [place] [address] 7 [place] [address] Care Team Providers Care Operation Agent Name Role Phone Jacquelyn Kothari MD Primary Care Provider [phone] Reason for Visit * Reason Comments Med Refill Encounter Details Date Type Department Care Team ([facility] Contact Info) Description 12/27/2022 Refill [facility] CHC MED & PEDS [address] [place] [address] Cristian Robert MD [address] [place] [address] Primary hypertension Social History Tobacco Use Types [...] documented as of this encounter Care Teams Operation Agent Relationship Specialty Start Date End Date Jacquelyn Kothari MD [address] [place] [address] PCP - General Family Medicine 05/18/20 documented as of this encounter
--- OUTSIDE RECORDS SUMMARY | 2025-06-23 22:57 | XMS_ITS | Clinical Summary ---
Author Organization [employer] Address [address] [place] [address] 7[address] [place] [address] Care Team Providers Care Hospital Insurance Representative Name Role Phone Jacquelyn Kothari MD Primary Care Provider [phone] Allergies Active Allergy Reactions Criticality Noted Date [...] Encounters Date Type Department Care Team Description 06/03/2025 Orders Only [facility] External Provider, [facility] 04/14/[address] [facility] [address] [place] [address] Jacquelyn Kothari MD Anxiety from Last 3 [...] 12/02/2025 12/02/2024 Depression Screening 12/02/2025 12/02/2024, 12/03/19 SDOH Screening 12/02/2025 12/02/2024 Tobacco Screening 12/02/2025 [...] Procedure Name Priority Date/Time Associated Diagnosis Comments STRESS TEST WITH MYOCARDIAL PERFUSION Routine 06/03/2025 10:50 AM EST LAB COLOGUARD COLON CANCER SCREEN Routine 12/15/2024 12:05 AM EDT Screening for colon cancer Routine general medical examination at a health care facility Hypercholesterolemia LIPID PANEL, STANDARD Routine 12/09/2024 2:02 PM EDT Screening for colon cancer Routine general medical examination at a health care facility Hypercholesterolemia from Last 3 Months or Most Recently Relevant to Health Maintenance Results * Stress test with myocardial perfusion (06/03/2025 10:50 AM EST) 06/03/2025 10:5 0 AM EST Narrative [facility] IMAGING - 06/07/2025 5:07 PM EST [address] [address] Nuclear Medicine Report Signed Patient: Carl Rajput MR#: [id number] 4 : 1955 Acct:[id number] Age/Sex: 70 / M ADM Date: 06/03/25 Loc: .[facility] Attending Dr: Yovani Gusman MD Ordering Physician: Yovani Gusman MD Date of Service: 06/03/25 Procedure(s): OK cardiolite stress test Accession Number(s): [id number] cc: Jacquelyn Kothari MD; Yovani Gusman MD Reason for Exam: R07.2 - Precordial pain EXERCISE MYOCARDIAL PERFUSION STUDY INDICATION: Coronary artery disease TECHNIQUE: The patient was brought in for an exercise perfusion study on 06/03/2025. Patient performed exercise as per Buddy protocol and was injected 30 mCi of sestamibi once target heart rate was achieved. Images were obtained using the SPECT gamma camera interlaced with the gating device. Images were obtained in supine position. Resting perfusion study was performed on 06/06/2025. Patient was administered 30 mCi of sestamibi intravenously at rest. Images were then obtained in supine position. Total DLP 94 mGy-cm. Images were processed with the software and compared side to side in short axis, horizontal long axis and vertical long axis views. FINDINGS: Raw aquisition reviewed. The stress perfusion study showed decreased tracer uptake along the inferolateral wall from base to apex. No significant change with CT attenuation correction.. The gated study shows normal LV systolic function with calculated LVEF of 66%. LV cavity is normal in size. The gated study shows diminished wall thickening and contractility in the inferolateral wall. Resting study shows mildly decreased tracer uptake in the basal part of inferior wall. Gating at rest reveals basal inferior hypokinesis with ejection fraction at 60%. The findings are consistent with reversible inferolateral defect suggestive ischemia. In the basal part of inferior wall, defect appears fixed suggestive of infarct. NM/NM cardiolite stress test IMPRESSION: 1. Myocardial perfusion imaging study shows inferolateral ischemia. 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 2. Gated LVEF is 66% during stress and 60% during rest. 3. Transient ischemic dilatation not present. EKG component of the test reported separately. Electronically signed by: Yovani Gusman MD 06/07/2025 05:04 PM EST Dictated By: Yovani Gusman MD Signed By: <Electronically signed by Yovani Gusman MD in OV> 06/07/25 1704 DD/ 1050 TD/TT: 06/06/25 1220 Compensation And Benefits Analyst: Procedure Note Donotuseinterpreter, Image - 06/07/2025 [place] [address] Nuclear Medicine Report Signed Patient: Carl Rajput RMR#: [id number] 4 : 5Acct:[id number] Age/Sex: 70 / MADM Date: 06/03/25 Loc: [facility] Attending Dr: Yovani Gusman MD Ordering Physician: Yovani Gusman MD Date of Service: 06/03/25 Procedure(s): NM cardiolite stress test Accession Number(s): [id number] cc: Jacquelyn Kothari MD; Yovani Gusman MD Reason for Exam: R07.2 - Precordial pain EXERCISE MYOCARDIAL PERFUSION STUDY INDICATION: Coronary artery disease TECHNIQUE: The patient was brought in for an exercise perfusion study on 06/03/2025. Patient performed exercise as per Buddy protocol and was injected 30 mCi of sestamibi once target heart rate was achieved. Images were obtained using the SPECT gamma camera interlaced with the gating device. Images were obtained in supine position. Resting perfusion study was performed on 06/06/2025. Patient was administered 30 mCi of sestamibi intravenously at rest. Images were then obtained in supine position. Total DLP 94 mGy-cm. Images were processed with the software and compared side to side in short axis, horizontal long axis and vertical long axis views. FINDINGS: Raw aquisition reviewed. The stress perfusion study showed decreased tracer uptake along the inferolateral wall from base to apex. No significant change with CT attenuation correction.. The gated study shows normal LV systolic function with calculated LVEF of 66%. LV cavity is normal in size. The gated study shows diminished wall thickening and contractility in the inferolateral wall. Resting study shows mildly decreased tracer uptake in the basal part of inferior wall. Gating at rest reveals basal inferior hypokinesis with ejection fraction at 60%. The findings are consistent with reversible inferolateral defect suggestive ischemia. In the basal part of inferior wall, defect appears fixed suggestive of infarct. NM/NM cardiolite stress test IMPRESSION: 1. Myocardial perfusion imaging study shows inferolateral ischemia. 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 2. Gated LVEF is 66% during stress and 60% during rest. 3. Transient ischemic dilatation not present. EKG component of the test reported separately. Electronically signed by: Yovani Gusman MD 06/07/2025 05:04 PM [facility] [employer] Workstation: [employer] Dictated By: Yovani Gusman MD Signed By: <Electronically signed by Yovani Gusman MD inOV> 06/07/25 1704 DD/ 1050 TD/TT: 06/06/25 1220 Compensation And Benefits Analyst: us [facility] External Provider CV STRE SS PROCEDURES Final Result [facility] IM[facility]ING [address] [place], [place] [id number] * (ABNORMAL) Cologuard?? colon cancer screening (12/15/2024 12:05 AM EDT) Cologuard Result Positive( A) Negative 12/22/2024 3:39 AM EDT [facility] (CLIA #:[id number]) Comment: The Cologuard Plus (TM) test was performed on this specimen. POSITIVE TEST RESULT. A positive (abnormal) Cologuard Plus result means the patient has a [id number] chance of having colorectal cancer (CRC) or [...] a 91% specificity (Cologuard Plus Clinician Brochure. [employer]. [place], [place].). Visit [email or web address] for more test information, references, warnings, and precautions. Stool specimen (specimen) 12/15/2024 12:05 AM EDT 12/17/2024 10:29 AM EDT us Jacquelyn Kothari MD LAB MOLECULAR DIAGNOSTICS ORD ERABLES Final Result [employer] [employer] [facility] (CLIA #:[id number]) [address] [place] [address], * (ABNORMAL) Lipid Panel, Standard (12/09/2024 2:02 PM EDT) Triglycerides 92 <150 mg/dL [facility] Comment:Desirable Triglyceri de: less than 150 mg/dLBorderline High Triglyceride 150-199 mg/dLHigh Triglyceride: 200-499 mg/dLVery High Triglyceride: greater than or equal to 5OO mg/dL Cholesterol 130 <200 mg/dL [facility] Comment:Desirable Cholestero l: less than 200 mg/dLBorderline High Cholesterol: 200-239 mg/dLHigh Cholesterol: greater than 239 mg/dL LDL Cholesterol Calculated 79 <100 mg/dL [facility] Comment:Desirable LDL: less than 100 mg/dLNear Optimal/Above Optimal LDL: 110- 129 mg/dLBorderline High LDL: 130-159 mg/dLHigh LDL: 160-189 mg/dLVery High LDL: greater than or equal to 190 mg/dL HDL Cholesterol 33(L) >40 mg/dL [facility] Comment:Desirable HDL: great er than 40 mg/dL Note: This HDL assay may give artificially low results in patients with liver disease. Blood Venous blood specimen / Unknown 12/09/2024 2:02 PM EDT 12/09/2024 5:33 PM EDT us Jacquelyn Kothari MD LAB BLOOD ORDERABLES Final Re sult [facility] [address] [place] [phone] from Last 3 Months or Most Recently Relevant to [id number] MEDICARE [facility] [place] [address] [place] [id number] Care Teams Hospital Insurance Representative Relationship Specialty Start Date End Date Jacquelyn Kothari MD [address] [place] [address] [place] [id number] PCP - General Family Medicine 05/18/20
--- OUTSIDE RECORDS SUMMARY | 2025-06-23 22:57 | XMS_ITS | Encounter Summary ---
Author Organization [employer] Address [address] [place] [address] [address] [place] [address] Care Team Providers Care Rn Chemical Dependency Name Role Phone Jacquelyn Kothari MD Primary Care Provider [phone] Reason for Visit * Reason Comments Med Refill Encounter Details Date Type Department Care Team ([facility] Contact Info) Description 10/11/2024 Refill [facility] [address] [place] [address] Patricia Walsh MD [address] [place] [address] Anxiety Social History Tobacco Use Types Packs/Day [...] documented as of this encounter Care Teams Rn Chemical Dependency Relationship Specialty Start Date End Date Jacquelyn Kothari MD [address] [place] [address] PCP - General Family Medicine 05/18/20 documented as of this encounter
== END 2025-06-23 16:07 | disposition home or self-care (01) ==
LOC: HO.HGI 15:22
PROVIDERS: PCP Pediatrics; Visit Provider Nurse Practitioner Family
DX: R19.5 Other fecal abnormalities (principal); K21.9 Gastro-esophageal reflux disease without esophagitis; I25.10 Atherosclerotic heart disease of native coronary artery without angina pectoris
CPT/HCPCS: 99203

== ENCOUNTER → 2025-06-23 15:22 | Outpatient (BNVA) | payer MEDICARE, MEDICAID, SELFPAY | PROVIDERS: PCP Pediatrics; Visit Provider Nurse Practitioner Family | DX: Z01.818 Encounter for other preprocedural examination (principal); K21.9 Gastro-esophageal reflux disease without esophagitis; R19.5 Other fecal abnormalities; I25.10 Atherosclerotic heart disease of native coronary artery without angina pectoris | CPT/HCPCS: 99202 ==